=== PATIENT | female | born 1980 | race Caucasian/White ===

== ENCOUNTER 2017-02-01 06:20 | Day surgery (SDC) | payer OTHER ==
[2017-01-28 12:10] VITALS: BMI 43.5
[~2017-02-01 06:20] MED LIST: HEPARIN SODIUM,PORCINE 5,000 UNIT/ML 1 ML VIAL SQ ONE; ceFAZolin 2 GM in SODIUM CHLORIDE 0.9% 100 ML IVPB ONE
[2017-02-01] MEDS ORDERED: LACTATED RINGERS 1,000 ML IV ONE ×2 (06:44→09:20)
[2017-02-01] MEDS ORDERED: LIDOCAINE 1% 20 ML VIAL (10MG/ML) FOR IV START INTRADERMA ONE (06:45)
[2017-02-01] MEDS ORDERED: DEXAMETHASONE SOD PHOS (MDV) 100 MG/10 ML VIAL IV ONE (06:46)
[2017-02-01] MEDS ORDERED: ONDANSETRON 4 MG/2 ML VIAL IVP ONE ×3 (06:47→10:15)
--- NOTE | 2017-02-01 07:09 | P.GSHP ---
History of Present Illness H&P Date: 02/01/17 CHIEF COMPLAINT: Ventral hernia. HISTORY OF PRESENT ILLNESS: Ana Rodriguez is a 36 years-old female who is accompanied by her mother who reports a several year history of umbilical hernia. At this time, her hernia is grown at least to the size of a grapefruit along her umbilicus. She comes in with changes in bowel habits. She denies any moderate abdominal pain. She reports that her weight has been poorly controlled in the last several years and it is more difficult to manage as well. She now presents for further evaluation and management. There are no reports of blood in stools and no reports of nausea and vomiting, fevers or chills. PAST MEDICAL HISTORY: Please see list. PAST SURGICAL HISTORY: Please see list. MEDICATIONS: Please see list. ALLERGIES: Please see list. SOCIAL HISTORY: No illicit drug use FAMILY HISTORY: No reports of Crohn disease or ulcerative colitis. REVIEW OF ORGAN SYSTEMS: Constitutional: She is over 80+ pounds over weight. GI: Changes in bowel habits. Fatty food intolerance including chronic diarrhea. PHYSICAL EXAM: VITAL SIGNS: Stable GENERAL: Well-developed pleasant female in no acute distress. HEENT: No scleral icterus. Extraocular movements grossly intact. Moist buccal mucosa. NECK: Supple without lymphadenopathy. CHEST: Unlabored respirations. Equal bilateral excursions. CARDIOVASCULAR: Regular rate and rhythm. Distal 2+ pulses. Abdomen: 12 x 15 cm projected hernia with skin changes without warmth or signs of cellulitis or infection. Exam is consistent with a incarcerated ventral hernia. MUSCULOSKELETAL: No clubbing, cyanosis, or edema. ASSESSMENT: 1. Incarcerated ventral hernia, initial, over 15 cm in size. 2. Obesity. 3. History of changes in bowel habits. 4. Gallbladder disorder. PLAN: 1. As her most pressing issue includes an incarcerated ventral hernia, I have recommended surgical intervention. Options including robotic assisted including laparoscopic and open technique were reviewed. She has moderate skin redundancy , which may need resection at time of her operation. 2. Risks of recurrence are increased with her weight, especially with weight gain. We will discuss weight loss options after her surgery. 3. Her other concerns, including changes in bowel habits and possible gallbladder disorder. I have discussed with her that gallbladder surgery with ventral hernia surgery and mesh placement is at risk and is contraindicated for chance of infecting her mesh. 4. She will need at least 4 weeks of recovery. 5. No lifting over 4 pounds. 6. Given the skin changes and changes in bowel habits, I have recommended more urgent surgical intervention. 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 VENTRAL HERNIA. History of Any Multi-Drug Resistant Organisms: None Reported Additional Past Surgical History / Comment(s): EXC WISDOM TEETH Past Anesthesia/Blood Transfusion Reactions: Postoperative Nausea & Vomiting ( PONV) Past Psychological History: No Psychological Hx Reported Smoking Status: Never smoker Past Alcohol Use History: None Reported Past Drug Use History: None Reported - Past Family History Mother Family Medical History: No Reported History Father Family Medical History: CVA/TIA, Deep Vein Thrombosis (DVT) Medications and Allergies Home Medications Medication Instructions Recorded Confirmed Type Cetirizine HCl [Zyrtec] 10 mg PO HS 01/28/17 02/01/17 History Allergies Allergy/AdvReac Type Severity Reaction Status Date / Time No Known Allergies Allergy Verified 01/28/17 11:50 Surgical - Exam Vital Signs Temp Pulse Resp BP Pulse Ox 97.2 F L 78 16 152/102 98 02/01/17 06:31 02/01/17 06:31 02/01/17 06:31 02/01/17 06:31 02/01/17 06:31
[2017-02-01] MEDS ORDERED: DEXAMETHASONE SOD PHOSPHATE 10 MG/ML 1 ML VIAL IV ONE (07:17)
[2017-02-01] MEDS ORDERED: SCOPOLAMINE 1.5MG/72HR PATCH TRANSDERM ONE (07:17)
[2017-02-01] MEDS ORDERED: MIDAZOLAM 2 MG/2 ML VIAL IV PRN (07:17)
[2017-02-01] MEDS ORDERED: HYDROmorphone 1 MG/ML 1 ML SYRINGE IVP PRN (07:17)
[2017-02-01] MEDS ORDERED: VECURONIUM 10 MG VIAL IV ONE (07:29)
[2017-02-01] MEDS ORDERED: SUCCINYLCHOLINE CHLORIDE 100 MG/5 ML SYR IV ONE (07:29)
[2017-02-01] MEDS ORDERED: GLYCOPYRROLATE 0.2 MG/ML 2 ML VIAL ONE (07:29)
[2017-02-01] MEDS ORDERED: fentaNYL (PF) 50 MCG/ML 2 ML AMP ONE (07:29)
[2017-02-01] MEDS ORDERED: PROPOFOL 10 MG/ML 20 ML VIAL IV ONE (07:29)
[2017-02-01] MEDS ORDERED: KETOROLAC 30 MG/ML 1 ML VIAL ONE (07:29)
[2017-02-01] MEDS ORDERED: LIDOCAINE 1% INJ 10MG/ML (20 ML MDV) ONE (07:29)
[2017-02-01] MEDS ORDERED: MIDAZOLAM 2 MG/2 ML VIAL ONE (07:29)
[2017-02-01] MEDS ORDERED: HYDROmorphone (PF) 1 MG/ML ONE (07:29)
[2017-02-01] MEDS ORDERED: NEOSTIGMINE 1 MG/ML 10 ML VIAL ONE (07:29)
[2017-02-01] MEDS ORDERED: LACTATED RINGERS 1,000 ML IV SCH (07:30)
[2017-02-01] MEDS ORDERED: BUPIVACAIN-EPI 0.25%-1:200,000 30 ML VIAL SQ ONE (07:46)
[2017-02-01] MEDS ORDERED: NALOXONE 0.4 MG/ML 1 ML VIAL IV PRN (10:06)
[2017-02-01] MEDS ORDERED: ONDANSETRON 4 MG/2 ML VIAL IVP PRN (10:06)
[2017-02-01] MEDS ORDERED: HYDROcodone/APAP 5-325MG 1 EACH TAB PO PRN (10:06)
--- NOTE | 2017-02-01 10:06 | P.PCN ---
Date of Procedure: 02/01/17 Preoperative Diagnosis: Incarcerated ventral hernia 15 cm Postoperative Diagnosis: Incarcerated ventral hernia 15 cm Procedure(s) Performed: Robotic-assisted laparoscopic repair of incarcerated ventral initial hernia 15 cm using 15.2 cm mesh; excision of benign lesion 15 x 4 cm with intermediate repair along umbilicus Anesthesia: GETA, local (60 mL Marcaine with epinephrine mixture) Surgeon: Marisela Alonso Estimated Blood Loss (ml): 20 Pathology: other (Incarcerated hernia sac) Condition: stable Disposition: floor Operative Findings: Fascial defect of 5 cm with incarcerated omentum and skin defect of 15 cm repair excised and closed Plan - Discharge Summary New Discharge Prescriptions: Hydrocodone/Acetaminophen [Marshall 5-325] 1 - 2 each PO Q6HR PRN #30 tab PRN Reason: Pain Discharge Medication List Cetirizine HCl [Zyrtec] 10 mg PO HS 01/28/17 [History] Hydrocodone/Acetaminophen [Marshall 5-325] 1 - 2 each PO Q6HR PRN #30 tab 02/01/17 [Rx] Follow up Appointment(s)/Referral(s): Marisela Alonso MD [STAFF PHYSICIAN] - 02/09/17 Patient Instructions/Handouts: Abdominal Binder (GEN), Ventral Hernia Repair ( DC), Laparoscopic Herniorrhaphy (DC) Activity/Diet/Wound Care/Special Instructions: Lifting for 4 pounds in 4 weeks. Please for abdominal binder at all times except for showering. Do not remove surgical dressing. Discharge Disposition: HOME SELF-CARE
[2017-02-01 10:30] VITALS: TEMP 99
[2017-02-01] MEDS ORDERED: PROMETHAZINE INJ 25 MG/ML 1 ML VIAL IVPB ONE (11:20)
[2017-02-01 11:25] VITALS: RESP 16
[2017-02-01] MEDS ORDERED: KETOROLAC 30 MG/ML 1 ML VIAL IVP SCH (12:00)
[2017-02-01] MEDS ORDERED: HYDROcodone/APAP 5-325MG 1 EACH TAB PO ONE (12:29)
[2017-02-01 13:25] VITALS: BP 111/60; PULSE 88
== END 2017-02-01 14:00 | disposition home or self-care (01) ==
LOC: OR 06:20
PROVIDERS: ATTEND Surgery Plastic and Reconstructive Surgery
DX: K43.6 Other and unspecified ventral hernia with obstruction, without gangrene (principal); R19.4 Change in bowel habit; K52.9 Noninfective gastroenteritis and colitis, unspecified; E66.9 Obesity, unspecified; K82.9 Disease of gallbladder, unspecified; L98.7 Excessive and redundant skin and subcutaneous tissue; Z79.899 Other long term (current) drug therapy
CPT/HCPCS: 81025; 88302; 49653; C1781; J2250; J1644; J2550; J2710; J0690; J2405; J2001; J3010; J1885; J1170; J1100; J0330; J2704

== ENCOUNTER → 2018-02-24 | Outpatient (CLI) | payer OTHER ==
--- NOTE | 2018-02-24 08:55 | US ---
EXAMINATION TYPE: US gallbladder DATE OF EXAM: 02/24/2018 COMPARISON: NONE CLINICAL HISTORY: R19.7 Diarrhea; RUQ pain after meals EXAM MEASUREMENTS: Liver Length: 16.8 cm Gallbladder Wall: 0.2 cm CBD: 0.2 cm Right Kidney: 11.1 x 6.4 x 5.5 cm Pancreas: hyperechoic with tail obscured by overlying bowel gas Liver: fatty liver as is hyperechoic to right renal cortex and liver is attenuated posteriorly. This most commonly represents underlying hepatic steatosis and limits evaluation for hepatic masses. Gallbladder: wnl Evidence for sonographic Motta's sign: No CBD: wnl Right Kidney: No hydronephrosis or masses seen IMPRESSION: 1. No sonographic evidence of cholelithiasis or acute cholecystitis. 2. Hyperechoic hepatic echotexture most commonly related to hepatic steatosis.
== END | disposition home or self-care (01) ==
LOC: RADUSWWP 07:34
PROVIDERS: ATTEND Family Medicine
DX: R93.2 Abnormal findings on diagnostic imaging of liver and biliary tract (principal); R19.7 Diarrhea, unspecified
CPT/HCPCS: 76705

== ENCOUNTER 2018-07-08 05:38 | Day surgery (SDC) | payer OTHER ==
[2018-07-05 13:30] VITALS: BMI 36.6
--- NOTE | 2018-07-07 17:54 | P.GSHP ---
History of Present Illness H&P Date: 07/08/18 CHIEF COMPLAINT: Cholecystitis HISTORY OF PRESENT ILLNESS: The patient is a 37-year-old female who presents with history of epigastric including right upper quadrant abdominal pain. She underwent diagnostic studies for her gallbladder. Separately her clinical picture was consistent with cholecystitis. Now she presents for surgical intervention. PAST MEDICAL HISTORY: Please see list PAST SURGICAL HISTORY: Please see list MEDICATIONS: Please see list ALLERGIES: Denies. SOCIAL HISTORY: No illicit drug use or recent tobacco use FAMILY HISTORY: Pertinent for gallbladder disease REVIEW OF ORGAN SYSTEMS: CONSTITUTIONAL: No reports of fevers or chills. HEENT: Denies any troubles with the vision or hearing. PHYSICAL EXAM: VITAL SIGNS: Afebrile vital signs stable GENERAL: Well-developed pleasant in no acute distress. HEENT: No scleral icterus. Extraocular movements grossly intact. Moist buccal mucosa. NECK: Supple without lymphadenopathy. CHEST: Unlabored respirations. Equal bilateral excursions. CARDIOVASCULAR: Regular rate regular rhythm rhythm. Distal 2+ pulses. ABDOMEN: Soft, nondistended. Tender along the epigastrium and right upper quadrant. MUSCULOSKELETAL: No clubbing, cyanosis, or edema. NEURO: Cranial nerves II to XII within normal limits. No focal or lateralizing signs. PSYCH: Alert and oriented to person, place and time. SKIN: Well-perfused good skin turgor. ASSESSMENT: 1. Epigastric and right upper quadrant abdominal pain 2. Chronic cholecystitis 3. Symptomatic gallstones. PLAN: 1. Will need a robotic cholecystectomy possible open. Benefits and risks were described. 2. Heparin for DVT prophylaxis 5000 units. 3. Antibiotic prophylaxis. 4. Will need CBC and comprehensive metabolic profile and there procedure Past Medical History Past Medical History: GERD/Reflux Additional Past Medical History / Comment(s): HEART MURMUR CHILD. VENTRAL HERNIA. History of Any Multi-Drug Resistant Organisms: None Reported Past Surgical History: Hernia Repair Additional Past Surgical History / Comment(s): EXC WISDOM TEETH, UMBILICAL HERNIA REPAIR Past Anesthesia/Blood Transfusion Reactions: Postoperative Nausea & Vomiting ( PONV) Smoking Status: Never smoker - Past Family History Mother Family Medical History: No Reported History Father Family Medical History: CVA/TIA, Deep Vein Thrombosis (DVT) Medications and Allergies Home Medications Medication Instructions Recorded Confirmed Type Cetirizine HCl [Zyrtec] 10 mg PO HS 07/05/18 07/05/18 History Allergies Allergy/AdvReac Type Severity Reaction Status Date / Time No Known Allergies Allergy Verified 07/05/18 13:04
[~2018-07-08 05:38] MED LIST changes: -ceFAZolin 2 GM in SODIUM CHLORIDE 0.9% 100 ML IVPB ONE; +ceFAZolin IN SWFI 2 GM/20 ML SYRINGE IVP ONE
[2018-07-08] MEDS ORDERED: INDOCYANINE GREEN 25 MG VIAL IV STA (05:45)
[2018-07-08] MEDS ORDERED: HEPARIN SODIUM,PORCINE 5,000 UNIT/ML 1 ML VIAL SQ ONE (05:45)
[2018-07-08] MEDS ORDERED: ceFAZolin IN SWFI 2 GM/20 ML SYRINGE IVP ONE (05:45)
[2018-07-08] MEDS ORDERED: LIDOCAINE 1% 20 ML VIAL (10MG/ML) FOR IV START INTRADERMA ONE (06:31)
[2018-07-08] MEDS ORDERED: LACTATED RINGERS 1,000 ML IV ONE (06:33)
[2018-07-08 06:35] VITALS: RESP 16
[2018-07-08 06:43] LABS: Basophils % (A) 0 %; Eosinophils # (A) 0.2 k/uL (0-0.7); Eosinophils % (A) 2 %; HCT 37.1 % (34.0-46.0); HGB 12.1 gm/dL (11.4-16.0); Lymphocytes % (A) 37 %; MCHC 32.7 g/dL (31.0-37.0); MCV 82.6 fL (80.0-100.0); Monocytes # (A) 0.4 k/uL (0-1.0); Monocytes % (A) 5 %; Neutrophils # (A) 4.5 k/uL (1.3-7.7); Neutrophils % (A) 54 %; Platelet Count 342 k/uL (150-450); RBC 4.49 m/uL (3.80-5.40); RDW 13.4 % (11.5-15.5); WBC 8.2 k/uL (3.8-10.6)
[2018-07-08 06:53] LABS: ALT 25 U/L (9-52); AST 15 U/L (14-36); Albumin 4.2 g/dL (3.5-5.0); Alkaline Phosphatase 41 U/L (38-126); Anion Gap 11 mmol/L; Blood Urea Nitrogen 14 mg/dL (7-17); Calcium 9.4 mg/dL (8.4-10.2); Carbon Dioxide 23 mmol/L (22-30); Chloride 107 mmol/L (98-107); Glucose 109 mg/dL (74-99); Potassium 4.3 mmol/L (3.5-5.1); Sodium 141 mmol/L (137-145); Total Bilirubin 0.6 mg/dL (0.2-1.3); Total Protein 7.9 g/dL (6.3-8.2)
[2018-07-08] MEDS ORDERED: ONDANSETRON 4 MG/2 ML VIAL IVP ONE (06:57)
[2018-07-08] MEDS ORDERED: DEXAMETHASONE SOD PHOSPHATE 10 MG/ML 1 ML VIAL IV ONE (06:58)
[2018-07-08] MEDS ORDERED: VECURONIUM 10 MG VIAL IV ONE (07:24)
[2018-07-08] MEDS ORDERED: NEOSTIGMINE 1 MG/ML 10 ML VIAL ONE (07:24)
[2018-07-08] MEDS ORDERED: INDOCYANINE GREEN 25 MG VIAL IV ONE ×3 (07:24→07:40)
[2018-07-08] MEDS ORDERED: GLYCOPYRROLATE 0.2 MG/ML 2 ML VIAL ONE (07:24)
[2018-07-08] MEDS ORDERED: fentaNYL (PF) 50 MCG/ML 2 ML AMP ONE (07:24)
[2018-07-08] MEDS ORDERED: PROPOFOL 10 MG/ML 20 ML VIAL IV ONE (07:24)
[2018-07-08] MEDS ORDERED: SUCCINYLCHOLINE CHLORIDE 100 MG/5 ML SYR IV ONE (07:24)
[2018-07-08] MEDS ORDERED: MIDAZOLAM 2 MG/2 ML VIAL ONE (07:24)
[2018-07-08] MEDS ORDERED: LIDOCAINE 1% INJ 10MG/ML (20 ML MDV) ONE (07:24)
[2018-07-08] MEDS ORDERED: BUPIVACAIN-EPI 0.5%-1:200,000 30 ML VIAL SQ ONE (07:50)
[2018-07-08 09:05] VITALS: TEMP 97.1
--- NOTE | 2018-07-08 09:08 | P.OP ---
Date of Procedure: 07/08/18 Description of Procedure: SURGEON: MARIEL MOONEY MD ICT SUPPORT AND TEST ENGINEERS: SANTI MCALLISTER PREOPERATIVE DIAGNOSES: 1. Symptomatic gallstones 2. Chronic cholecystitis 3. Morbid obesity excess calories, BMI 36.6 POSTOPERATIVE DIAGNOSES: 1. Symptomatic gallstones 2. Chronic cholecystitis 3. Morbid obesity excess calories, BMI 36.6 4. Severe hepatomegaly with fatty liver disease 5. Peritoneal adhesions epigastrium and left upper quadrant due to prior surgery OPERATION: 1. Robotic-assisted da Cyndy Xi laparoscopic lysis of adhesions 2. Robotic-assisted da Cyndy Xi laparoscopic cholecystectomy, multiport with FIREFLY ESTIMATED BLOOD LOSS: 5 mL. SPECIMENS REMOVED: Gallbladder. COMPLICATIONS: None. OPERATIVE FINDINGS: 1. Chronic cholecystitis 2. Moderate to severe adhesions epigastrium and left upper quadrant due to previous surgery INDICATIONS: The patient is a 37-year-old female who presents with cholelcystitis. Surgical intervention with a laparoscopic cholecystectomy was described at length including injury to the biliary tree, bleeding, infection, need for further surgery. Informed consent was obtained. Robotic assisted laparoscopic approach was described. Benefits and risks of the procedure including but not limited to bleeding, infection, injury to the biliary tree was described. Informed consent was obtained. DESCRIPTION OF PROCEDURE: Patient was brought to the operating room, placed in supine position. After general induction, the abdomen had been prepped and draped in standard sterile fashion. The robotic da Cyndy XI system was primed. After a timeout protocol was performed, the patient had been prepped and draped in standard sterile fashion. The patient was injected with indocyanine green. A 5 mm 0 degrees laparoscopic trocar entry was performed along the left upper quadrant. The abdomen insufflated to 15 mmHg pressure which she tolerated well. Diagnostic laparoscopy demonstrated no injury to bowel viscera or mesentery. Severe adhesions were found along the epigastrium including left upper quadrant. Additionally severe fatty liver disease and hepatomegaly was identified at an moderate difficulty a case. Next, two 8 mm robotic ports were placed along the right upper abdomen. The camera 8-mm port was maintained along the epigastrium. Another 8 mm port was placed along the left upper abdominal wall after exchanging the 5 mm port. Please note that the ports were placed at least 10 to 15 cm away from the target anatomy of the gallbladder. The robot was docked along the left lateral abdomen. The patient was repositioned in reverse Trendelenburg position. Using a grasper for arm 3, a grasper for arm 4, including hook cautery for arm 1 , the robotic system was docked and primed as described. Instruments were interchanged by the assistant corporate controller including hook cautery,Vessel sealer and clip appliers. I had sat at the console. Initial adhesions were performed using a vessel sealer to allow clearance for trocar in the left upper quadrant. The camera was positioned along the right upper quadrant to allow maximal view. The liver was extremely moderate in size obscuring view of the gallbladder. Adhesions were identified along the infundibulum of the gallbladder and addressed using hook cautery. The gallbladder fundus was retracted over the dome of the liver. Dome down technique using cautery was used towards the infundibulum to allow additional traction due to her severe hepatomegaly. Electro-Bovie cautery was used to remove the gallbladder from the hepatic fossa. Hemostasis was checked and found to be adequate. Attention was brought to the infundibulum which was gently retracted in the inferior lateral approach. Using a grasper, the cystic duct including the cystic artery was carefully skeletonized. FIREFLY was used to identify the cystic artery and cystic structures. Large PLASTIC clips were used throughout the entire case. Using a clip hay stacker 1 clip was placed proximally, and 1 clip was placed distally along the cystic duct. Mild spillage of bile did occur. Vessel sealer was used to remove the remnant of the gallbladder along the cystic structures. The robot was undocked. I re-scrubbed into the case. Bile was removed using 4 x 4 gauze. Using a 10 mm Endo Catch bag via the left upper quadrant incision, the specimen was removed from the abdominal cavity. All pneumoperitoneum instruments were evacuated from the abdominal cavity. The incisions were reapproximated using 4-0 Monocryl in an interrupted subcuticular fashion. Fascial defects were less than 8 mm in size. Please note along the trocar sites, local anesthetic was placed as a field block prior to insertion of all instruments. Liquid glue was applied to the skin. OptiFoam was applied along the left upper quadrant incision. At the end of the procedure needle, sponge, and instrument count had been verified correct by the surgical orderly. The patient was transferred to postanesthesia care unit in stable condition. Intraoperative films were shared with the patient's family who were very pleased with the level of care. Console time 32 minutes Plan - Discharge Summary New Discharge Prescriptions: No Action Cetirizine HCl [Zyrtec] 10 mg PO HS Discharge Medication List Cetirizine HCl [Zyrtec] 10 mg PO HS 07/05/18 [History]
[2018-07-08 11:41] VITALS: BP 110/75; PULSE 70
== END 2018-07-08 11:37 | disposition home or self-care (01) ==
LOC: OR 05:38
PROVIDERS: ATTEND Surgery Plastic and Reconstructive Surgery
DX: K81.1 Chronic cholecystitis (principal); K66.0 Peritoneal adhesions (postprocedural) (postinfection); K21.9 Gastro-esophageal reflux disease without esophagitis; K76.0 Fatty (change of) liver, not elsewhere classified; E66.01 Morbid (severe) obesity due to excess calories; Z68.36 Body mass index [BMI] 36.0-36.9, adult; Z79.899 Other long term (current) drug therapy
CPT/HCPCS: 47562; S2900; 80053; 85025; 88304

== ENCOUNTER → 2019-01-05 | Outpatient (CLI) | payer OTHER ==
--- NOTE | 2019-01-05 11:37 | US ---
EXAMINATION TYPE: US liver DATE OF EXAM: 01/05/2019 COMPARISON: Gallbladder ultrasound February 24, 2018 CLINICAL HISTORY: R94.5 Abnormal results of liver function studies. abnormal labs, GB removed Septemb er 2018, NPO EXAM MEASUREMENTS: Liver Length: 21.3 cm CBD: 0.4 cm CHD: 0.3 cm Right Kidney: 11.1 x 5.5 x 5.4 cm Pancreas: Appears echogenic, tail not visualized due to overlying bowel gas Liver: Enlarged. Appears slightly echogenic, heterogenous and coarse. Gallbladder: Surgically absent Evidence for sonographic Motta's sign: neg CBD: wnl CHD: wnl Right Kidney: wnl, dromedary hump visualized Visualized pancreas appears within normal limits though portions of distal body and tail are suboptim ally evaluated on images saved due to shadowing from overlying bowel gas per technologist. Visualized liver is heterogeneously hyperechoic. There is no suspicious intrahepatic ductal dilatation. Evaluat ion for focal masses suboptimal due to the heterogeneity. Gallbladder surgically absent. Limited imag es right kidney show no gross hydronephrosis. IMPRESSION: Persistent heterogeneous hyperechoic appearance of liver favors product of Diffuse fatty infiltration, underlying hepatocellular disease is not excluded. Imaging guided random biopsy can BE performed to further evaluate if desired. No significant change from prior.
== END | disposition home or self-care (01) ==
LOC: RADUSWWP 10:41
PROVIDERS: ATTEND Surgery Plastic and Reconstructive Surgery
DX: K76.0 Fatty (change of) liver, not elsewhere classified (principal)
CPT/HCPCS: 76705

== ENCOUNTER → 2019-04-20 | Outpatient (CLI) | payer OTHER ==
[2019-04-20 11:26] LABS: Basophils % (A) 0 %; Eosinophils # (A) 0.2 k/uL (0-0.7); Eosinophils % (A) 3 %; HCT 37.1 % (34.0-46.0); HGB 12.4 gm/dL (11.4-16.0); Lymphocytes # (A) 2.7 k/uL (1.0-4.8); Lymphocytes % (A) 33 %; MCHC 33.5 g/dL (31.0-37.0); MCV 83.5 fL (80.0-100.0); Mean Platelet Volume 6.3; Monocytes # (A) 0.3 k/uL (0-1.0); Monocytes % (A) 4 %; Neutrophils # (A) 4.9 k/uL (1.3-7.7); Neutrophils % (A) 59 %; Platelet Count 376 k/uL (150-450); RBC 4.44 m/uL (3.80-5.40); RDW 13.7 % (11.5-15.5); WBC 8.3 k/uL (3.8-10.6)
[2019-04-20 16:32] LABS: Albumin 4.3 g/dL (3.80-4.90); Albumin/Globulin Ratio 1.65 (1.60-3.17); Anion Gap 8.6 mmol/L (4.00-12.00); BUN/Creat Ratio 21.67 Ratio (12.00-20.00); Calcium 9.5 mg/dL (8.7-10.3); Carbon Dioxide 26.4 mmol/L (21.6-31.8); Globulin 2.6 g/dL (1.6-3.3); Potassium 4.4 mmol/L (3.5-5.5); Total Bilirubin 0.3 mg/dL (0.2-1.2); Total Protein 6.9 g/dL (6.2-8.2)
== END | disposition home or self-care (01) ==
LOC: LABWHC1 11:00
PROVIDERS: ATTEND Internal Medicine Gastroenterology
DX: K76.0 Fatty (change of) liver, not elsewhere classified (principal)
CPT/HCPCS: 36415; 80053; 85025

== ENCOUNTER → 2019-09-06 | Outpatient (CLI) | payer OTHER ==
[2019-09-07 00:53] LABS: Gliadin AB IgA, Deaminated NEGATIVE (NEGATIVE); Gliadin AB IgA, Unit <0.2 U/mL; Gliadin AB IgG, Deaminated NEGATIVE (NEGATIVE)
== END | disposition home or self-care (01) ==
LOC: LABWHC1 14:36
PROVIDERS: ATTEND Internal Medicine Gastroenterology
DX: K52.9 Noninfective gastroenteritis and colitis, unspecified (principal)
CPT/HCPCS: 36415; 83516

== ENCOUNTER → 2020-06-04 | Outpatient (CLI) | payer OTHER ==
[2020-06-04 18:40] LABS: African American GFR (CKD) 133.1 (60.0-200.0); Albumin 4.4 g/dL (3.80-4.90); Albumin/Globulin Ratio 1.42 (1.60-3.17); Anion Gap 9.1 mmol/L (4.00-12.00); BUN/Creat Ratio 16.67 Ratio (12.00-20.00); Calcium 9.2 mg/dL (8.7-10.3); Carbon Dioxide 24.9 mmol/L (21.6-31.8); Chol/HDL Ratio 5.03; Globulin 3.1 g/dL (1.6-3.3); LDL Cholesterol,Calculated 93.4 mg/dL (0.0-131.0); Non-African American GFR(CKD) 114.8 (60.0-200.0); Potassium 4.4 mmol/L (3.5-5.5); Total Bilirubin 0.4 mg/dL (0.2-1.2); Total Protein 7.5 g/dL (6.2-8.2); VLDL Calculation 59.6 mg/dL (5.00-40.00)
[2020-06-04 20:20] LABS: Hemoglobin A1C 5.8 % (4.0-6.0)
== END | disposition home or self-care (01) ==
LOC: LABWHC1 14:51
PROVIDERS: ATTEND Nurse Practitioner
DX: Z00.01 Encounter for general adult medical examination with abnormal findings (principal); K76.0 Fatty (change of) liver, not elsewhere classified; K21.9 Gastro-esophageal reflux disease without esophagitis; G47.63 Sleep related bruxism
CPT/HCPCS: 36415; 80053; 80061; 83036; 84443

== ENCOUNTER → 2021-02-24 | Outpatient (CLI) | payer OTHER ==
--- NOTE | 2021-02-24 10:01 | MM ---
Reason for exam: screening (asymptomatic). Baseline mammogram. History: Taking hormonal contraceptives for 2 years. Physical Findings: Nurse did not find any significant physical abnormalities on exam. MG Screening Mammo w CAD Bilateral CC, MLO, and XCCL view(s) were taken. There are scattered fibroglandular densities. Finding: There is a 4 mm equal density (isodense), oval mass in the central position of the right breast. These results were verbally communicated with the patient and result sheet given to the patient on 02/24/21. ASSESSMENT: Incomplete: need additional imaging evaluation, BI-RAD 0 RECOMMENDATION: Ultrasound of the right breast.
--- NOTE | 2021-02-24 10:04 | USB ---
Reason for exam: additional evaluation requested from abnormal screening. History: Taking hormonal contraceptives for 2 years. Physical Findings: Breast exam preformed at baseline screening. US Breast Workup Limited RT Right limited breast ultrasound including focal area of concern, retroareolar and axilla demonstrates no cystic or solid lesion seen. These results were verbally communicated with the patient and result sheet given to the patient on 02/24/21. ASSESSMENT: Probably benign, BI-RAD 3 RECOMMENDATION: Follow-up diagnostic mammogram of the right breast in 6 months.
== END | disposition home or self-care (01) ==
LOC: RADMAMWWP 08:00
PROVIDERS: ATTEND Family Medicine
DX: Z12.31 Encounter for screening mammogram for malignant neoplasm of breast (principal); R92.8 Other abnormal and inconclusive findings on diagnostic imaging of breast
CPT/HCPCS: 77067

== ENCOUNTER → 2021-08-28 | Outpatient (CLI) | payer OTHER ==
--- NOTE | 2021-08-28 11:36 | MM ---
Reason for exam: follow-up at short interval from prior study. Last mammogram was performed 6 months ago. History: Taking hormonal contraceptives for 2 years. Physical Findings: Nurse did not find any significant physical abnormalities on exam. MG Diagnostic Mammo RT w CAD CC and MLO view(s) were taken of the right breast. Prior study comparison: February 24, 2021, bilateral MG screening mammo w CAD. There are scattered fibroglandular densities. The previous 4mm nodularity is no longer seen. No significant new findings when compared with previous films. These results were verbally communicated with the patient and result sheet given to the patient on 08/28/21. ASSESSMENT: Negative, BI-RAD 1 RECOMMENDATION: Return to routine screening mammogram schedule for both breasts. Back on schedule February 2022.
== END | disposition home or self-care (01) ==
LOC: RADMAMWWP 10:11
PROVIDERS: ATTEND Family Medicine
DX: R92.2 Inconclusive mammogram (principal)
CPT/HCPCS: 77065

== ENCOUNTER → 2022-03-05 | Outpatient (CLI) | payer OTHER ==
--- NOTE | 2022-03-06 14:30 | MM ---
Reason for exam: screening (asymptomatic). Last mammogram was performed 6 months ago. History: Taking hormonal contraceptives for 2 years. Physical Findings: A clinical breast exam by your physician is recommended on an annual basis and results should be correlated with mammographic findings. MG Screening Mammo w CAD Bilateral CC and MLO view(s) were taken. Prior study comparison: August 28, 2021, right breast MG diagnostic mammo RT w CAD. February 24, 2021, bilateral MG screening mammo w CAD. The breast tissue is heterogeneously dense. This may lower the sensitivity of mammography. There is chronic nodularity in the right breast, stable. No significant changes when compared with prior studies. ASSESSMENT: Benign, BI-RAD 2 RECOMMENDATION: Routine screening mammogram of both breasts in 1 year.
== END | disposition home or self-care (01) ==
LOC: RADMAMWWP 08:18
PROVIDERS: ATTEND Family Medicine
DX: Z12.31 Encounter for screening mammogram for malignant neoplasm of breast (principal)
CPT/HCPCS: 77067

== ENCOUNTER → 2023-03-08 | Outpatient (CLI) | payer OTHER ==
--- NOTE | 2023-03-09 08:29 | MM ---
Reason for Exam: Screening (asymptomatic). Last screening mammogram was performed 12 month(s) ago. Patient History: Menarche at age 12. First Full-Term at age 20. Premenopausal. Currently using Hormonal Contraceptives, beginning at age 39 for 3 years. Paternal grandmother had breast cancer. Risk Values: Humera 5 year model risk: 0.6%. NCI Lifetime model risk: 8.9%. Prior Study Comparison: 02/24/2021 Bilateral Screening Mammogram, [facility]. 08/28/2021 Right Diagnostic Mammogram, [facility]. 03/05/2022 Bilateral Screening Mammogram, [facility]. Tissue Density: There are scattered fibroglandular densities. Findings: Analyzed By CAD. Pattern appears symmetrical and stable. No suspicious groups of microcalcifications, spiculated or lobular masses, architectural distortion or other secondary signs of malignancy are mammographically apparent. Overall Assessment: Benign, BI-RAD 2 Management: Screening Mammogram of both breasts in 1 year. A negative mammogram report should not preclude additional follow up of suspicious palpable abnormalities. Patient should continue monthly self breast exam. A clinical breast exam by your physician is recommended on an annual basis and results should be correlated with mammographic findings. Electronically signed and approved by: Abdelrahman Bentley D.O. Radiologis
== END | disposition home or self-care (01) ==
LOC: RADMAMWWP 11:16
PROVIDERS: ATTEND Family Medicine
DX: Z12.31 Encounter for screening mammogram for malignant neoplasm of breast (principal); Z78.0 Asymptomatic menopausal state; Z80.3 Family history of malignant neoplasm of breast
CPT/HCPCS: 77067

== ENCOUNTER → 2024-05-26 | Outpatient (CLI) | payer OTHER ==
--- NOTE | 2024-06-21 11:41 | MM ---
Reason for Exam: Screening (asymptomatic). Last mammogram was performed 1 year(s) and 3 month(s) ago. Patient History: Menarche at age 12. First Full-Term at age 20. Premenopausal. Currently using Hormonal Contraceptives, beginning at age 39 for 3 years. Paternal grandmother had breast cancer. Risk Values: Humera 5 year model risk: 0.6%. NCI Lifetime model risk: 8.8%. Prior Study Comparison: 08/28/2021 Right Diagnostic Mammogram, [facility]. 03/05/2022 Bilateral Screening Mammogram, [facility]. 03/08/2023 Bilateral MG screening mammo w CAD, [facility]. Tissue Density: There are scattered areas of fibroglandular density. Findings: Analyzed By CAD. Right breast: There is no suspicious group of microcalcifications or new suspicious mass. Left breast: There is no suspicious group of microcalcifications or new suspicious mass. Overall Assessment: Negative, BI-RAD 1 Management: Screening Mammogram of both breasts in [address] [facility] will attempt to contact patient to return for supplemental views and ultrasound if indicated. Patient should continue monthly self-breast exams. A clinical breast exam by your physician is recommended on an annual basis. This exam should not preclude additional follow-up of suspicious palpable abnormalities. Note on Humera scores and lifetime risk: 1. A Humera score greater than 3% is considered moderate risk. If this is the case, consider specialist referral to assess eligibility for a risk reducing agent. 2. If overall lifetime risk for the development of breast cancer is 20% or higher, the patient may qualify for future screening with alternating mammogram and breast MRI. Electronically signed and approved by: Ian Lloyd DO
== END | disposition home or self-care (01) ==
LOC: RADMAMWWP 13:43
PROVIDERS: ATTEND Family Medicine
DX: Z12.31 Encounter for screening mammogram for malignant neoplasm of breast (principal); Z80.3 Family history of malignant neoplasm of breast
CPT/HCPCS: 77067

== ENCOUNTER 2025-04-29 12:42 | Emergency (ER) | payer OTHER ==
[2025-04-29 12:55] VITALS: TEMP 98.9
--- NOTE | 2025-04-29 13:03 | ED ---
General Adult HPI - General Chief complaint: Psychiatric Symptoms Stated complaint: Suicidal Time Seen by Provider: 04/29/25 13:00 Source: patient, RN notes reviewed, old records reviewed Mode of arrival: EMS Limitations: no limitations - History of Present Illness Initial comments: This is a 44-year-old female who presents to the emergency department after having been in a verbal altercation with her daughter. The daughter eventually called her father who is not the of the patient. He showed up and the patient states she just wanted to get away but they called the police and told the police that she had taken pills even though she claims she has not. Patient states it was just an argument that got out of hand but there was no physical altercation. Patient denies any suicide attempt. Patient denies any previous suicide attempts. Patient denies any suicidal ideations. Patient denies any homicidal ideations. Patient denies any drinking or drug use. Patient denies any physical complaints today. - Related Data Home Medications Medication Instructions Recorded Confirmed Cetirizine HCl [Zyrtec] 10 mg PO HS 07/05/18 04/29/25 Allergies Allergy/AdvReac Type Severity Reaction Status Date / Time strawberry Allergy Anaphylaxis Verified 04/29/25 13:42 tomato Allergy Anaphylaxis Verified 04/29/25 13:42 tuna oil AdvReac Rash/Hives Verified 04/29/25 13:42 Review of Systems ROS Statement: Those systems with pertinent positive or pertinent negative responses have been documented in the HPI. ROS Other: All systems not noted in ROS Statement are negative. 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 VENTRAL HERNIA. History of Any Multi-Drug Resistant Organisms: None Reported Past Surgical History: Hernia Repair Additional Past Surgical History / Comment(s): EXC WISDOM TEETH, UMBILICAL HERNIA REPAIR Past Anesthesia/Blood Transfusion Reactions: Postoperative Nausea & Vomiting (PONV) Past Psychological History: No Psychological Hx Reported Past Alcohol Use History: None Reported Past Drug Use History: None Reported - Past Family History Mother Family Medical History: No Reported History Father Family Medical History: CVA/TIA, Deep Vein Thrombosis (DVT) General Exam - General Exam Comments Initial Comments: GENERAL: Patient is well-developed and well-nourished. Patient is nontoxic and well-hydrated and is in no acute distress. ENT: Neck is soft and supple. No significant lymphadenopathy is noted. Oropharynx is clear. Moist mucous membranes. Neck has full range of motion without eliciting any pain. EYES: The sclera were anicteric and conjunctiva were pink and moist. Extraocular movements were intact and pupils were equal round and reactive to light. Eyelids were unremarkable. SKIN: Skin is clear with no lesions or rashes and otherwise unremarkable. NEUROLOGIC: Patient is alert and oriented x3. Cranial nerves II through XII are grossly intact. Motor and sensory are also intact. Normal speech, volume and content. Symmetrical smile. MUSCULOSKELETAL: Normal extremities with adequate strength and full range of motion. LYMPHATICS: No significant lymphadenopathy is noted PSYCHIATRIC: Patient denies suicidal homicidal ideations. Limitations: no limitations Course Vital Signs 04/29/25 04/29/25 12:54 13:20 Temperature 98.9 F Pulse Rate 125 H 76 Respiratory 20 Rate Blood Pressure 197/120 176/96 O2 Sat by Pulse 99 97 Oximetry Medical Decision Making - Medical Decision Making Was pt. sent in by a medical professional or institution (Dr. PA, [employer], urgent care, hospital, or snf...) When possible be specific @ -No Did you speak to anyone other than the patient for history (EMS, parent, family, police, friend...)? What history was obtained from this source @ -No Did you review nursing and triage notes (agree or disagree)? Why? @ -I reviewed and agree with nursing and triage notes Were old charts reviewed (outside hosp., previous admission, EMS record, old EKG, old radiological studies, urgent care reports/EKG's, snf records)? Report findings @ -No old charts were reviewed Differential Diagnosis? @ -Differential Mental Health Depression, anxiety, bipolar, psychosis, schizophrenia, borderline personality, situational depression, adjustment disorder, behavioral disorder, brain tumor, malingering, substance abuse, encephalopathy, medication reaction, dementia, hypothyroidism, degenerative neurologic disorder, lupus.... This is not meant to be all-inclusive list EKG interpreted by me (3pts min.). @ -As above X-rays interpreted by me (1pt min.). @ -None done CT interpreted by me (1pt min.). @ -None done U/S interpreted by me (1pt. min.). @ -None done What testing was considered but not performed or refused? (CT, X-rays, U/S, labs)? Why? @ -None What meds were considered but not given or refused? Why? @ -None Did you discuss the management of the patient with other professionals (professionals i.e. , PA, [employer], lab, RT, psych nurse, social director, printing plate maker, teacher, fourth officer, rifle case repairer)? Give summary @ -EPS came down and evaluated the patient and she was in consult Tat[place] with the psychiatrist it was determined that the patient was safe to go home and a safety plan was formulated and given to the patient patient be discharged home Was smoking cessation discussed for >3mins.? @ -No Was critical care preformed (if so, how long)? @ -No Were there social determinants of health that impacted care today? How? (Homelessness, low income, unemployed, alcoholism, drug addiction, transportation, low edu. Level, literacy, decrease access to med. care, [facility], rehab)? @ -No Was there de-escalation of care discussed even if they declined (Discuss DNR or withdrawal of care, Hospice)? DNR status @ -No What co-morbidities impacted this encounter? (DM, HTN, Smoking, COPD, CAD, Cancer, CVA, ARF, Chemo, Hep., AIDS, mental health diagnosis, sleep apnea, morbid obesity)? @ -None Was patient admitted / discharged? Hospital course, mention meds given and route, prescriptions, significant lab abnormalities, going to OR and other pertinent info. @ -Hospital course Undiagnosed new problem with uncertain prognosis? @ -No Drug Therapy requiring intensive monitoring for toxicity (Heparin, Nitro, Insulin, Cardizem)? @ -No Were any procedures done? @ -No Diagnosis/symptom? @ -Domestic dispute Acute, or Chronic, or Acute on Chronic? @ -Acute Uncomplicated (without systemic symptoms) or Complicated (systemic symptoms)? @ -Uncomplicated Side effects of treatment? @ -No Exacerbation, Progression, or Severe Exacerbation? @ -No Poses a threat to life or bodily function? How? (Chest pain, [place], ID, pneumonia, PE, COPD, DKA, ARF, appy, cholecystitis, CVA, Diverticulitis, Homicidal, Suicidal, threat to staff... and all critical care pts) @ -No - Lab Data Lab Results 04/29/25 04/29/25 Range/Units 12:30 13:20 Salicylates <1.0 mg/dL Urine Opiates Screen Not Detected (NotDetected) Ur Oxycodone Screen Not Detected (NotDetected) Urine Methadone Screen Not Detected (NotDetected) Acetaminophen <10.0 ug/mL Ur Barbiturates Screen Not Detected (NotDetected) U Tricyclic Antidepress Not Detected (NotDetected) Ur Phencyclidine Scrn Not Detected (NotDetected) Ur Amphetamines Screen Not Detected (NotDetected) U Methamphetamines Scrn Not Detected (NotDetected) U Benzodiazepines Scrn Not Detected (NotDetected) Urine Cocaine Screen Detected H (NotDetected) U Marijuana (THC) Screen Detected H (NotDetected) Disposition Clinical Impression: Domestic problems Disposition: HOME SELF-CARE Condition: Good Is patient prescribed a controlled substance at d/c from ED?: No Referrals: Edelmira Lyons MD [Primary Care Provider] - 1-2 days Time of Disposition: 14:11
[2025-04-29 13:20] VITALS: RESP 20
[2025-04-29 13:47] LABS: Acetaminophen <10.0 ug/mL; Salicylate <1.0 mg/dL
[2025-04-29 14:08] LABS: Barbiturate Screen,Urine Not Detected (NotDetected); Benzodiazepines Screen,Urine Not Detected (NotDetected); Opiate Screen,Urine Not Detected (NotDetected); Oxycodone Screen, Urine Not Detected (NotDetected); Phencyclidine Screen,Urine Not Detected (NotDetected); Tricyclic Antidepressant,Urine Not Detected (NotDetected); Urn Cannabinoid Scrn Detected (NotDetected)
[2025-04-29 14:27] VITALS: BP 174/84; PULSE 74
== END 2025-04-29 14:27 | disposition home or self-care (01) ==
LOC: EC 12:42
DX: F34.1 Dysthymic disorder (principal); Z91.018 Allergy to other foods; Z91.013 Allergy to seafood
CPT/HCPCS: 36415; 80143; 80179; 80306; 82075; 99285